=== PATIENT | female | born 1985 | race Caucasian/White ===

== ENCOUNTER 2024-05-09 14:41 | Emergency (ER) | payer OTHER ==
[~2024-05-09] VITALS: Ht 149.9 cm; Wt 72.6 kg
[2024-05-09] MEDS ORDERED: CLINDAMYCIN PHOSPHATE 150 MG/ML (300mg) ONE (16:26)
[2024-05-09] MEDS ORDERED: CLINDAMYCIN PHOSPHATE 150 MG/ML (300mg) IV ONE (16:30)
== END 2024-05-09 17:10 | disposition home or self-care (01) ==
LOC: ER 14:42
DX: L02.91 Cutaneous abscess, unspecified (principal); Z88.0 Allergy status to penicillin